=== PATIENT | male | born 1955 | race Caucasian/White ===

== ENCOUNTER 2024-04-18 10:22 | Inpatient (IN) | payer MEDICARE, OTHER ==
[2024-04-15 10:43] VITALS: BMI 31.5
[2024-04-18] MEDS ORDERED: Rocuronium Bromide 10 MG/ML (10ML VIAL) ONE (11:24)
[2024-04-18] MEDS ORDERED: fentaNYL PF 100 MCG/2 ML SYRINGE ONE ×2 (11:24→15:15)
[2024-04-18] MEDS ORDERED: PROPOFOL 20 ML ONE (11:24)
[2024-04-18] MEDS ORDERED: Lidocaine 1% PF 5 ML VIAL ONE (11:24)
[2024-04-18] MEDS ORDERED: Ketorolac Tromethamine 30 MG (1 mL) VIAL ONE (11:33)
[2024-04-18] MEDS ORDERED: Heparin 5,000 UNITS/ML VIAL ONE (11:33)
[2024-04-18] MEDS ORDERED: Acetaminophen 325 MG TAB ONE (11:33)
[2024-04-18] MEDS ORDERED: metroNIDAZOLE 500 MG (100 mL) BAG ONE (11:34)
[2024-04-18] MEDS ORDERED: Methylene Blue 50 MG/10 ML AMPUL ONE (12:22)
[2024-04-18 12:30] LABS: #Basophils 0.06 10x3/uL (0.0-0.2); %Basophils 0.6 % (0.0-1.0); %Eosinophils 1.4 % (0.0-10.0); %Lymphocytes 10.1 % (21.0-51.0); %Monocytes 5.5 % (0.0-10.0); %Neutrophils 82.1 % (42.0-75.0); Hematocrit 46.4 % (42.0-52.0); Hemoglobin 15.1 g/dL (14.0-18.0); Mean Corpuscular HGB CONC 32.5 g/dL (32.0-36.0); Mean Corpuscular Hemoglobin 28.4 pg (27.0-31.0); Mean Corpuscular Volume 87.2 fL (78.0-98.0); Mean Platelet Volume 9.7 fL (7.4-10.4); Platelet Count 299 10x3/uL (130-400); RBC Distribution Width 14.6 % (11.5-14.5); Red Blood Cell (RBC) Count 5.32 mill/uL (4.70-6.10)
[2024-04-18 12:36] LABS: ALT (SGPT) 20 U/L (8-55); AST (SGOT) 20 U/L (5-34); Albumin 3.7 g/dL (3.4-4.8); Alkaline Phosphatase 86 U/L (40-110); Anion Gap 20 mmol/L (10-20); BUN (Urea Nitrogen) 21 mg/dL (8.4-25.7); Bilirubin, Total 0.6 mg/dL (0.2-1.2); Calc. Creatinine Clearance 89 mL/min (70-130); Carbon Dioxide 21 mmol/L (23-31); Chloride 105 mmol/L (98-107); Estimated GFR 73; Globulin 4.1 g/dL (2.4-3.5); Glucose 144 mg/dL (80-115); Potassium 4.6 mmol/L (3.5-5.1); Protein, Total 7.8 g/dL (5.8-8.1); Sodium 141 mmol/L (136-145)
[2024-04-18] MEDS ORDERED: Labetalol HCl 100 MG/20 ML VIAL ONE (12:52)
[2024-04-18] MEDS ORDERED: CEFAZOLIN 1 GM VIAL ONE (12:52)
[2024-04-18] MEDS ORDERED: EPINEPHrine 1 MG/ML VIAL ONE (12:58)
[2024-04-18] MEDS ORDERED: Bupivacaine 0.25% HCL 30 ML VIAL ONE (12:58)
[2024-04-18] MEDS ORDERED: SUGAMMADEX SODIUM 200 MG/2 ML VIAL ONE (14:01)
[2024-04-18] MEDS ORDERED: Ondansetron PF 4 MG/2 ML Vial ONE (14:01)
[2024-04-18] MEDS ORDERED: hydrALAZINE 20 MG/ML VIAL SLOW IVP PRN (14:18)
[2024-04-18] MEDS ORDERED: Insulin Lispro 100 UNIT/ML 10 ML VIAL SC PRN (14:18)
[2024-04-18] MEDS ORDERED: Ondansetron PF 4 MG/2 ML Vial IVP PRN (14:18)
[2024-04-18] MEDS ORDERED: Ipratropium/Albuterol 3 ML NEB NEB PRN (14:18)
[2024-04-18] MEDS ORDERED: Promethazine HCl 25 MG/ML VIAL IM PRN ×2 (14:18→14:24)
[2024-04-18] MEDS ORDERED: Albuterol 200 PUFF (6.7GM INHALER) INH PRN (14:23)
[2024-04-18] MEDS ORDERED: Ondansetron HCl/PF 4 MG/2 ML Vial IVP PRN (14:24)
[2024-04-18] MEDS ORDERED: hydrALAZINE 20 MG/ML VIAL ONE (15:02)
[2024-04-18] MEDS ORDERED: Albuterol 200 PUFF INH INH PRN (16:00)
[2024-04-18] MEDS: traMADol HCl 50 MG TAB PO PRN (18:33)
[2024-04-18] MEDS: Acetaminophen 325 MG TAB PO SCH (18:33)
[2024-04-18] MEDS: Enoxaparin 30 MG (0.3 mL) SYRINGE SC SCH (21:29)
[2024-04-19] MEDS: Levothyroxine Sodium 125 MCG TAB PO SCH (05:03)
[2024-04-19 05:44] LABS: #Basophils Less than 0.03 10x3/uL (0.0-0.2); %Basophils 0.2 % (0.0-1.0); %Eosinophils 0.5 % (0.0-10.0); %Lymphocytes 8.7 % (21.0-51.0); %Monocytes 7.2 % (0.0-10.0); %Neutrophils 83.2 % (42.0-75.0); Hematocrit 43.3 % (42.0-52.0); Hemoglobin 14.1 g/dL (14.0-18.0); Mean Corpuscular HGB CONC 32.6 g/dL (32.0-36.0); Mean Corpuscular Hemoglobin 28.4 pg (27.0-31.0); Mean Corpuscular Volume 87.1 fL (78.0-98.0); Mean Platelet Volume 9.9 fL (7.4-10.4); Platelet Count 280 10x3/uL (130-400); RBC Distribution Width 15.1 % (11.5-14.5); Red Blood Cell (RBC) Count 4.97 mill/uL (4.70-6.10)
[2024-04-19 05:59] LABS: Anion Gap 18 mmol/L (10-20); BUN (Urea Nitrogen) 19 mg/dL (8.4-25.7); Calc. Creatinine Clearance 80 mL/min (70-130); Carbon Dioxide 17 mmol/L (23-31); Chloride 108 mmol/L (98-107); Estimated GFR 64; Glucose 128 mg/dL (80-115); Potassium 4.1 mmol/L (3.5-5.1); Sodium 139 mmol/L (136-145)
[2024-04-19] MEDS: Losartan 25 MG TAB PO SCH (09:12)
[2024-04-19] MEDS: Insulin Glargine 30 UNITS/0.3 ML VIAL SC SCH (09:13)
[2024-04-19] MEDS: Liothyronine Sodium 5 MCG TAB PO SCH (09:13)
[2024-04-19 12:35] VITALS: BP 123/73; TEMP 97.9
[2024-04-19] MEDS: traMADol HCl 50 MG TAB PO PRN (13:10)
[2024-04-19] MEDS ORDERED: Enoxaparin 40 MG (0.4 mL) SYRINGE SC SCH (21:00)
== END 2024-04-19 15:26 | disposition home or self-care (01) | DRG 331 ==
LOC: SURG A 10:29 → SURG B 18:05
PROVIDERS: ADMIT Surgery; ATTEND Surgery
PROC: 0DQP0ZZ Repair Rectum, Open Approach (ICD-10-PCS; principal; 2024-04-18)
PROC: 0DJ08ZZ Inspection of Upper Intestinal Tract, Via Natural or Artificial Opening Endoscopic (ICD-10-PCS; 2024-04-18)
DX: K60.30 Anal fistula, unspecified (principal); Z85.46 Personal history of malignant neoplasm of prostate
CPT/HCPCS: 36415; 36416; 80048; 80053; 85025; 93005; 93010; J0171; J0360; J0665; J0690; J1644; J1650; J1815; J1885; J2405; J2704